=== PATIENT | male | born 1990 | race African-American/Black ===

== ENCOUNTER 2019-01-31 17:21 | Emergency (ER) | payer SELFPAY ==
[~2019-01-31] VITALS: Ht 185.4 cm; Wt 141.1 kg
[2019-01-31 17:22] VITALS: BP 118/69
[2019-01-31] MEDS ORDERED: LORA-476 PO (17:27)
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
[2019-01-31 18:43] VITALS: BP 108/72
--- NOTE | 2019-01-31 18:43 | NUR ---
Patient discharged with v/s stable. Written and verbal after care instructions given and explained. Patient alert, oriented and verbalized understanding of instructions. Ambulatory with steady gait. All questions addressed prior to discharge. ID band removed. Patient advised to follow up with PMD. Rx of MOTRIN 400MG AND BENGAY TOPICAL OINTMENT given. Patient educated on indication of medication including possible reaction and side effects. Opportunity to ask questions provided and answered.
== END 2019-01-31 18:43 | disposition home or self-care (01) ==
LOC: MED 17:21
DX: S29.011A Strain of muscle and tendon of front wall of thorax, initial encounter (principal); Z79.899 Other long term (current) drug therapy; X50.1XXA Overexertion from prolonged static or awkward postures, initial encounter; Y93.89 Activity, other specified; Y92.89 Other specified places as the place of occurrence of the external cause; Y99.8 Other external cause status
CPT/HCPCS: 99283

== ENCOUNTER 2024-01-23 15:31 | Emergency (ER) | payer MEDICAID ==
[~2024-01-23] VITALS: Ht 185.4 cm; Wt 143.8 kg
[~2024-01-23 15:31] MED LIST: LORA-476 PO
[2024-01-23 15:43] VITALS: BP 149/87; PULSE 76; RESP 15; TEMP 97.5; O2SAT 97
[2024-01-23] MEDS: KETOROLAC 30 MG/ML VIAL IM ONE (16:48)
[2024-01-23] MEDS ORDERED: IBUP-1842 PO (16:57)
== END 2024-01-23 18:08 | disposition home or self-care (01) ==
LOC: MED 15:31
DX: S62.337A Displaced fracture of neck of fifth metacarpal bone, left hand, initial encounter for closed fracture (principal); J45.909 Unspecified asthma, uncomplicated; Z79.1 Long term (current) use of non-steroidal anti-inflammatories (NSAID); Z79.899 Other long term (current) drug therapy; W26.9XXA Contact with unspecified sharp object(s), initial encounter; Y93.89 Activity, other specified; Y92.89 Other specified places as the place of occurrence of the external cause; Y99.8 Other external cause status
CPT/HCPCS: 29125; 73080; 73130; 96372; 99284; J1885